=== PATIENT | male | born 1965 | race Caucasian/White ===

== ENCOUNTER 2017-01-03 18:30 | Emergency (ER) | payer MEDICAID ==
[~2017-01-03 18:30] MED LIST: ASPIR 8181 MG PO; BRILINTA90 MG PO; CALCIUM 600 +1 EAC4 PO; CATAPRES-T0.2 MG/24 TD; COREG3.125 MG PO; DIAZEPAM10 MG PO; DULCOLAX10 MG RC; FLEXERIL-DPS10 MG PO; LIPITOR40 MG PO; NEXIUM40 MG PO; NITROGLYCERIN0.4 MG SL; OXY IR DPS5 MG PO; OXYCONTIN40 MG PO; TRIAMCINOLONE TP; VALIUM5 MG PO; VITAMIN D5000 UNIT PO; ZESTRIL10 MG PO
--- NOTE | 2017-01-05 02:42 | ER ---
ADMIT: 01/03/2017 RM/LOC: ER [facility] MR#: [id number] [address] [facility] [address] [place] [id number] FRANC LEE [address] [facility] [place] [id number] Emergency Room Report SEX: M AGE: 51 : 1965 DATE: 01/03/2017 ADDENDUM: The patient was passed on to me by DONNY Dickinson. His labs; the urine positive for rbc's only 3 cells. Rest of the test was negative. His CT of the abdomen shows a small umbilical hernia containing fat without bowel loops, moderate amount of stool, moderate constipation, mild colonic diverticulosis without diverticulitis, and appendix is normal. No bowel obstruction. The patient was discharged with instructions to follow up with surgeon. Continue his home medications. Hydration. MiraLax to help with constipation. DONNY Barrett / Dwayne Peter MD / modl JOB #: [id number] CC: Dwayne Peter MD, Attending Physician Ruma Bishop MD, Family Physician
--- NOTE | 2017-01-09 19:59 | ER ---
ADMIT: 01/03/2017 RM/LOC: ER [facility] MR#: [id number] [address] [facility] [address] [place], [place] [id number] JESUSFRANC [address] [place] [id number] Emergency Room Report SEX: M AGE: 51 : 1965 DATE: 01/03/2017 CHIEF COMPLAINT: Abdominal pain. HISTORY OF PRESENT ILLNESS: A 51-year-old male, who presents with two days' duration of worsening abdominal pain. States his pain is persistently just left of his umbilicus. Kind of sharp in nature. Associated with some chills, nausea, vomiting, loss of appetite. Denies any diarrhea. Sounds like he has had four episodes of loose stools today. No blood in his vomit or stools. No problems urinating. No baudilio blood in his urine. He is on multiple chronic pain medications including oxycodone, diazepam, OxyContin. States he still has pain besides this. Not worse with food. He has not been around anyone who is sick. He has been afebrile. No recent illnesses. COURSE IN THE EMERGENCY ROOM: GENERAL: The patient was seen and examined. Afebrile and nontoxic. No acute distress. HEENT: Pharynx not erythematous. NECK: Soft and supple. CHEST: Clear. Breath sounds equal bilaterally. HEART: Regular rate and rhythm. ABDOMEN: Soft. He does have some tenderness just distal and left to his umbilicus. No guarding or rebound. No McBurney's point tenderness. No CVA tenderness. SKIN: Warm and dry. EXTREMITIES: Nontender. No pedal edema. He does have somewhat of a flat affect. I did get laboratory studies on him today showing sodium 143, potassium 3.9, BUN 6, creatinine 0.8, bilirubin 0.2. Liver enzymes normal. Lipase 106, white count 5.3, hemoglobin 14.2, hematocrit 41.4, platelets 146. Urine is pending at this time. He was given 4 mg ODT of Zofran while in the department. CT abdomen and pelvis with contrast was ordered and pending at this time. I will send this patient over to GUERO Barrett, for further management and disposition of this patient. DONNY Dickinson / Derik Potts MD / alex JOB #: [id number] CC: Dwayne Peter MD, Attending Physician Ruma Bishop MD, Family Physician
== END 2017-01-03 22:11 | disposition home or self-care (01) ==
LOC: ER 18:30
DX: K57.30 Diverticulosis of large intestine without perforation or abscess without bleeding (principal); K59.00 Constipation, unspecified; K42.9 Umbilical hernia without obstruction or gangrene; I10 Essential (primary) hypertension; F17.210 Nicotine dependence, cigarettes, uncomplicated; Z88.0 Allergy status to penicillin; Z88.1 Allergy status to other antibiotic agents; Z88.5 Allergy status to narcotic agent